=== PATIENT | female | born 1940 | race Caucasian/White ===

== ENCOUNTER → 2016-12-02 | Outpatient (CLI) | payer MEDICARE ==
[~2016-12-02] MED LIST: AMLO5CAP2 PO; ASPI32ECTA PO; ATEN50TA2 PO; COSO1SOL2 OU; FISH100049 PO; GEMF600T PO; GLIP5TAB8 PO; GLUC1CAP10 PO; GREE1TAB PO; GREE315C2 PO; LIPI80TA PO; METF1000 PO; MILK175C7 PO; VITA500C10 PO; ZYLO300T4 PO
[2016-12-02 11:30] LABS: ANION GAP 6 MEQ/L (8-16); BLOOD UREA NITROGEN 23 MG/DL (7-18); CALCIUM LEVEL 9.2 MG/DL (8.8-10.2); CARBON DIOXIDE LEVEL 26 MEQ/L (21-32); CHLORIDE LEVEL 106 MEQ/L (98-107); CREATININE FOR GFR 0.76 MG/DL (0.55-1.02); GLOMERULAR FILTRATION RATE > 60.0 (>39); GLUCOSE, FASTING 218 MG/DL (83-110); SODIUM LEVEL 138 MEQ/L (136-145)
--- NOTE | 2016-12-02 15:26 | ECGEPIP ---
Stationary ECG Study [facility] Test Date: 2016-12-02 Pat Name: KARLY ACOSTA Department: Room: - Gender: F Prestidigitator: REN : 1940 Requested By: Ridge Salinas Order Number: [id number] Reading MD: Ridge Mckeon Measurements Intervals [place] Rate: 61 P: 62 MO: 179 QRS: 31 QRSD: 96 T: 22 QT: 412 QTc: 415 Interpretive Statements SINUS RHYTHM Within normal limits. No prior ECG available for comparison at the time of interpretation. Electronically Signed On 12-02-2016 15:25:49 EDT by Ridge Mckeon
== END ==
LOC: M LAB 10:16
PROVIDERS: ATTEND Ophthalmology
DX: E11.9 Type 2 diabetes mellitus without complications (principal)

== ENCOUNTER 2016-12-09 11:03 | Day surgery (SDC) | payer MEDICARE ==
[~2016-12-09] VITALS: Ht 168.9 cm; Wt 88.5 kg
[~2016-12-09 11:03] MED LIST changes: +ACETYLCHOLINE OPHTH SOLN 1% 2ML As Ordered ONE; +BALANCED SALT IRRIGATION SOLUTION 500ML BAG (FOR OR EYE MACHINE) As Ordered ONE; +CEFUROXIME 1MG/0.1ML INTRACAMERAL INJ As Ordered ONE; +HEALON DUET (HEALON 10MG/ML 0.55ML & HEALON ENDOCOAT 30MG/ML 0.85ML) As Ordered ONE; +LIDOCAINE 0.75%/EPINEPHRINE 0.025% IN BSS 1ML SYR INTRACAMERAL (OR ONLY) As Ordered ONE; +OFLOXACIN 0.3 % (OCUFLOX) OPTH SOL 5ML OD ONE; +PHENYLEPHRINE 2.5% OPHTH SOL 2ML OD ONE; +POVIDONE-IODINE 5% OPHTH PREP SOL 30ML As Ordered ONE; +PROPARACAINE 0.5% OPHTH SOL 15ML OD ONE; +TOBRADEX OPHTH OINT 3.5 GM As Ordered ONE; +TROPICAMIDE 1% OPHTH SOLN 2 ML OD ONE
[2016-12-09] MEDS ORDERED: HumaLOG INSULIN (NovoLOG) PER UNIT As Ordered ONE (11:30)
[2016-12-09] MEDS ORDERED: HumaLOG INSULIN (NovoLOG) PER UNIT SC ONE ×2 (12:00→12:15)
[2016-12-09] MEDS ORDERED: D5W/0.2% SODIUM CHLORIDE 250 ML IV SCH ×2 (12:00→12:15)
[2016-12-09] MEDS ORDERED: fentaNYL 100 MCG/2 ML INJECTION (J3010) As Ordered ONE (12:06)
[2016-12-09] MEDS ORDERED: MIDAZOLAM INJ 2 MG/2 ML VIAL (J2250) As Ordered ONE (12:06)
[2016-12-09] MEDS ORDERED: TRIAMCINOLONE PRES FR 40 MG/ML 1ML(TRIESENCE)(OR EYE ONLY)(J3300 PER 1MG) As Ordered ONE (12:09)
[2016-12-09] MEDS ORDERED: OFLOXACIN 0.3 % (OCUFLOX) OPTH SOL 5ML As Ordered ONE (12:43)
[2016-12-09 13:20] VITALS: BP 183/86
--- NOTE | 2016-12-10 14:28 | RO ---
DATE OF PROCEDURE: 12/09/2016 PREOPERATIVE DIAGNOSIS: 1. Visually significant nuclear sclerotic cataract right eye. 2. Glaucoma. POSTOPERATIVE DIAGNOSIS: 1. Visually significant nuclear sclerotic cataract right eye. 2. Glaucoma. PROCEDURE: Extracapsular cataract removal with insertion of intraocular lens implant AU00T0, 21.0 diopter, with use of endoscopic cyclophotocoagulation, right eye. SURGEON: Augie Ngo DO GED INSTRUCTOR: ANESTHESIA: Local with monitored anesthesia care (MAC). COMPLICATIONS: None. POSTOPERATIVE CONDITION: Stable. INDICATION FOR SURGERY: Blurred vision right eye affecting patient's activities of daily living. DESCRIPTION OF PROCEDURE: The patient was seen in the preoperative area and properly identified. The correct operative eye was identified and marked. Attention was turned to that eye. The patient received topical antibiotics in the preoperative area. The patient then received topical dilating drops consisting of tropicamide and phenylephrine. The patient was then transferred to the operating room. The correct side was reidentified. The patient received topical anesthetics and antibiotics on the surface of the eye. The eye was prepped and draped in a sterile fashion. The upper and lower eyelids were isolated with Tegaderm tape, and the lids were held open with an adjustable speculum. Using a sideport blade, a paracentesis incision was made. Intraocular preservative-free lidocaine was then injected into the anterior chamber. Viscoelastic was then injected into the anterior chamber through the paracentesis. Using a 2.65 mm sharp-tipped keratome, the anterior chamber was entered via a temporal clear corneal incision. A continuous curvilinear capsulorrhexis was created with the aid of a 26-gauge cystotome and Utrata forceps. Hydrodissection was performed with balanced salt solution (BSS) on a blunt cannula until the nucleus was freely mobile. The crystalline lens was phacoemulsified and aspirated. A small anterior capsular tear was noted, the posterior capsule was inspected and was found to be intact. Additional cohesive viscoelastic was placed into the capsular bag to deepen it. A An AU00T0, 21.0 diopter lens was placed into the capsular bag and confirmed by visualizing the continuous curvilinear capsulorrhexis, the haptics were rotated away from the anterior capsular tear. Viscoelastic was then placed into the ciliary sulcus to deepen it. The ECP probe was placed into the anterior chamber and laser was performed. Viscoelastic was then removed. The lens was remained in good position. ReSure sealant was placed onto the temporal clear corneal incision. Miochol was used to reduce the pupil size. BSS was then used to refill the anterior chamber. All incisions were tested with Weck crawley and found to be watertight. The eyelid speculum was then carefully removed. Tobradex ointment was placed in the eye. An eye patch and shield were then secured over the eye. The patient tolerated the procedure well and was discharged to the recovery unit in a stable condition. KALPANA
== END 2016-12-09 13:15 | disposition home or self-care (01) ==
LOC: M SDC 11:03
PROVIDERS: ATTEND Ophthalmology
DX: H25.11 Age-related nuclear cataract, right eye (principal); H40.9 Unspecified glaucoma; I10 Essential (primary) hypertension; E11.9 Type 2 diabetes mellitus without complications; M06.9 Rheumatoid arthritis, unspecified; N20.0 Calculus of kidney; M16.11 Unilateral primary osteoarthritis, right hip; E78.5 Hyperlipidemia, unspecified; Z79.899 Other long term (current) drug therapy; Z79.82 Long term (current) use of aspirin; Z78.0 Asymptomatic menopausal state; Z98.51 Tubal ligation status
CPT/HCPCS: 66711; 66984; J2250; J3010; J3300; V2632

== ENCOUNTER → 2016-12-23 | Day surgery (SDC) | payer MEDICARE ==
[~2016-12-23] VITALS: Ht 168.9 cm; Wt 88.5 kg
[~2016-12-23] MED LIST changes: +D5W/0.2% SODIUM CHLORIDE 250 ML IV SCH; +HumaLOG INSULIN (NovoLOG) PER UNIT SC ONE; +LIDOCAINE 4% INJ 5 ML AMP As Ordered ONE; +MIDAZOLAM INJ 2 MG/2 ML VIAL (J2250) As Ordered ONE; -OFLOXACIN 0.3 % (OCUFLOX) OPTH SOL 5ML OD ONE; +OFLOXACIN 0.3 % (OCUFLOX) OPTH SOL 5ML OS ONE; -PHENYLEPHRINE 2.5% OPHTH SOL 2ML OD ONE; +PHENYLEPHRINE 2.5% OPHTH SOL 2ML OS ONE; -PROPARACAINE 0.5% OPHTH SOL 15ML OD ONE; +PROPARACAINE 0.5% OPHTH SOL 15ML OS ONE; -TROPICAMIDE 1% OPHTH SOLN 2 ML OD ONE; +TROPICAMIDE 1% OPHTH SOLN 2 ML OS ONE; +fentaNYL 100 MCG/2 ML INJECTION (J3010) As Ordered ONE
[2016-12-23 12:15] VITALS: BP 165/61
--- NOTE | 2016-12-24 10:07 | RO ---
DATE OF PROCEDURE: 12/23/2016 PREOPERATIVE DIAGNOSIS: Visually significant nuclear sclerotic cataract left eye. 2. Glaucoma POSTOPERATIVE DIAGNOSIS: Visually significant nuclear sclerotic cataract left eye. 2. Glaucoma PROCEDURE: Cataract extraction with use of phacoemulsification and placement of intraocular lens AU00T0, 20.0 Diopter, left eye, use of endoscopic cyclophotocoagulation. SURGEON: Augie Ngo DO RAMP ATTENDANT: ANESTHESIA: Local with monitored anesthesia care (MAC). COMPLICATIONS: None. POSTOPERATIVE CONDITION: Stable. INDICATION FOR SURGERY: Blurred vision left eye affecting patient's activities of daily living. DESCRIPTION OF PROCEDURE: The patient was seen in the preoperative area and properly identified. The correct operative eye was identified and marked. Attention was turned to that eye. The patient received topical antibiotics in the preoperative area. The patient then received topical dilating drops consisting of tropicamide and phenylephrine. The patient was then transferred to the operating room. The correct side was reidentified. The patient received topical anesthetics and antibiotics on the surface of the eye. The eye was prepped and draped in a sterile fashion. The upper and lower eyelids were isolated with Tegaderm tape, and the lids were held open with an adjustable speculum. Using a sideport blade, a paracentesis incision was made. Intraocular preservative-free lidocaine was then injected into the anterior chamber. Viscoelastic was then injected into the anterior chamber through the paracentesis. Using a 2.75 mm sharp-tipped keratome, the anterior chamber was entered via a temporal clear corneal incision. A continuous curvilinear capsulorrhexis was created with the aid of a 26-gauge cystotome and Utrata forceps. Hydrodissection was performed with balanced salt solution (BSS) on a blunt cannula until the nucleus was freely mobile. The crystalline lens was phacoemulsified and aspirated. Additional cohesive viscoelastic was placed into the capsular bag to deepen it. An AU00T0 21.0D lens was placed into the capsular bag and confirmed by visualizing the continuous curvilinear capsulorrhexis. Additional viscoelastic was placed in the ciliary sulcus to deepen it. The ECP probe was introduced to the corneal temporal incision and the ciliary processes were visualized. The ECP was used for approximately 270 degrees on a power of 0.25 for a total of 13 spots and then the ECP probe was removed from the eye. Additional irrigation and aspiration was used to remove cortical material and remaining viscoelastic. The clear corneal incision was hydrated with BSS on a blunt cannula. The lens was well positioned. The incisions were then tested for leaks and found to be negative. The eye was then palpated for appropriate pressure and adjusted accordingly with BSS. A single 10-0 nylon suture was placed and the knot was buried. The wound was checked and found to be water tight. The eyelid speculum was then carefully removed. Tobradex ointment was placed in the eye. An eye patch and shield were then secured over the eye. The patient tolerated the procedure well and was discharged to the recovery unit in a stable condition. KALPANA
== END | disposition home or self-care (01) ==
LOC: M SDC 09:09
PROVIDERS: ATTEND Ophthalmology
DX: H25.12 Age-related nuclear cataract, left eye (principal); H40.9 Unspecified glaucoma; I10 Essential (primary) hypertension; E11.9 Type 2 diabetes mellitus without complications; M06.9 Rheumatoid arthritis, unspecified; N20.0 Calculus of kidney; M16.11 Unilateral primary osteoarthritis, right hip; E78.5 Hyperlipidemia, unspecified; M10.9 Gout, unspecified; Z88.8 Allergy status to other drugs, medicaments and biological substances; Z79.899 Other long term (current) drug therapy; Z79.82 Long term (current) use of aspirin; Z98.51 Tubal ligation status
CPT/HCPCS: 66711; 66984; J2250; J3010; V2632

== ENCOUNTER → 2017-07-11 | Outpatient (CLI) | payer MEDICARE ==
[~2017-07-11] MED LIST changes: -ACETYLCHOLINE OPHTH SOLN 1% 2ML As Ordered ONE; +ASPI325T24 PO; -ASPI32ECTA PO; -BALANCED SALT IRRIGATION SOLUTION 500ML BAG (FOR OR EYE MACHINE) As Ordered ONE; -CEFUROXIME 1MG/0.1ML INTRACAMERAL INJ As Ordered ONE; -D5W/0.2% SODIUM CHLORIDE 250 ML IV SCH; -HEALON DUET (HEALON 10MG/ML 0.55ML & HEALON ENDOCOAT 30MG/ML 0.85ML) As Ordered ONE; -HumaLOG INSULIN (NovoLOG) PER UNIT SC ONE; -LIDOCAINE 0.75%/EPINEPHRINE 0.025% IN BSS 1ML SYR INTRACAMERAL (OR ONLY) As Ordered ONE; -LIDOCAINE 4% INJ 5 ML AMP As Ordered ONE; -METF1000 PO; +METF10004 PO; -MIDAZOLAM INJ 2 MG/2 ML VIAL (J2250) As Ordered ONE; +MILK175C2 PO; -MILK175C7 PO; -OFLOXACIN 0.3 % (OCUFLOX) OPTH SOL 5ML OS ONE; -PHENYLEPHRINE 2.5% OPHTH SOL 2ML OS ONE; -POVIDONE-IODINE 5% OPHTH PREP SOL 30ML As Ordered ONE; -PROPARACAINE 0.5% OPHTH SOL 15ML OS ONE; -TOBRADEX OPHTH OINT 3.5 GM As Ordered ONE; -TROPICAMIDE 1% OPHTH SOLN 2 ML OS ONE; -fentaNYL 100 MCG/2 ML INJECTION (J3010) As Ordered ONE
--- NOTE | 2017-07-11 14:11 | REPMRS ---
Patient History The patient states she has not had a clinical breast exam in over a year. Patient is postmenopausal. Family history of breast cancer in daughter at age 49. Digital Woman Screen Mammo: July 11, 2017 - Exam #: [id number] Bilateral CC and MLO view(s) were taken. Technologist: Alayna Mclean, Technologist Prior study comparison: November 14, 2015, digital woman screen mammo performed at [facility] to [facility]. October 29, 2014, digital woman screen mammo performed at [facility] to [facility]. FINDINGS: There are scattered fibroglandular densities. There has been no change in the appearance of the mammogram from the prior studies. There is a mild amount of residual fibroglandular tissue which is fairly symmetric. There is no interval development of dominant mass, architectural distortion, or clustered microcalcification suggestive of malignancy. ASSESSMENT: BI-RADS/ACR category 1 mammogram. Negative. Recommendation Routine screening mammogram in 1 year (for women over age 40). This mammogram was interpreted with the aid of an FDA-approved computer-aided dectection system. Electronically Signed By: Frank Chance MD 07/11/17 [id number]
== END ==
LOC: M WHC 13:24
PROVIDERS: ATTEND Nurse Practitioner Family
DX: Z12.31 Encounter for screening mammogram for malignant neoplasm of breast (principal)

== ENCOUNTER 2020-03-01 05:20 | Inpatient (IN) | payer MEDICARE ==
[2020-03-01] VITALS (11 sets, daily range): BP systolic 129–158; BP diastolic 61–80
[~2020-03-01] VITALS: Ht 167.6 cm; Wt 88.1 kg
[~2020-03-01 05:20] MED LIST changes: -AMLO5CAP2 PO; +AMLO5CAP44 PO; +ASPI-255 PO; -ASPI325T24 PO; -GEMF600T PO; +GEMF600T5 PO; -ZYLO300T4 PO; +ZYLO300T6 PO
[2020-03-01 05:48] LABS: BASO # 0.1 10^3/uL (0.0-0.2); BASO % 0.6 % (0.0-1.0); EOS # 0.2 10^3/uL (0.0-0.5); EOS % 1.9 % (0.0-3.0); HEMATOCRIT 33.7 % (36.0-47.0); HEMOGLOBIN 10.7 g/dl (12.0-15.5); LYMPH # 2.6 10^3/uL (1.5-5.0); LYMPH % 29.1 % (24.0-44.0); MEAN CORPUSCULAR HEMOGLOBIN 29.7 pg (27.0-33.0); MEAN CORPUSCULAR HGB CONC 31.8 g/dl (32.0-36.5); MEAN CORPUSCULAR VOLUME 93.6 fl (80.0-96.0); MONO # 0.5 10^3/uL (0.0-0.8); NEUTROPHILS # 5.5 10^3/uL (1.5-8.5); NEUTROPHILS % 61.7 % (36.0-66.0); PLATELET COUNT, AUTOMATED 342 10^3/uL (150-450); WHITE BLOOD COUNT 8.9 10^3/uL (4.0-10.0)
[2020-03-01 06:05] LABS: INR 0.88; PROTHROMBIN TIME 11.6 SECONDS (11.8-14.0)
[2020-03-01 06:06] LABS: PARTIAL THROMBOPLASTIN TIME 24.4 SECONDS (25.0-38.4)
[2020-03-01 06:13] LABS: BLOOD UREA NITROGEN 26 MG/DL (7-18); CALCIUM LEVEL 8.3 MG/DL (8.8-10.2); CARBON DIOXIDE LEVEL 23 MEQ/L (21-32); CHLORIDE LEVEL 110 MEQ/L (98-107); CREATININE FOR GFR 0.92 MG/DL (0.55-1.30); GLOMERULAR FILTRATION RATE > 60.0 (>39); GLUCOSE, FASTING 272 MG/DL (70-100); POTASSIUM SERUM 4.2 MEQ/L (3.5-5.1); SODIUM LEVEL 143 MEQ/L (136-145)
[2020-03-01] MEDS ORDERED: AMLODIPINE/BENAZ PO (06:43)
[2020-03-01] MEDS ORDERED: GLIP10TA18 PO (06:43)
[2020-03-01] MEDS ORDERED: MILK175T PO (06:43)
[2020-03-01] MEDS ORDERED: PURE500C5 PO (06:43)
[2020-03-01] MEDS ORDERED: CINN500C2 PO (06:44)
[2020-03-01] MEDS ORDERED: XELP0.00 OS (06:44)
[2020-03-01] MEDS ORDERED: NS 1,000 ML IV ONE (06:45)
[2020-03-01] MEDS ORDERED: BIOT10TA2 PO (06:46)
[2020-03-01] MEDS ORDERED: VITAD1000T PO (06:46)
--- NOTE | 2020-03-01 07:28 | ECGEPIP ---
[facility] - ED Test Date: 2020-03-01 Pat Name: KARLY ACOSTA Department: Room: - Gender: Female Supervisor Chassis Assembly: SONALI : 1940 Requested By: NADIRA RAMIREZ Order Number: [id number] Reading MD: Alma Dyer Measurements Intervals [place] Rate: 57 P: 6 [place]: 174 QRS: 13 QRSD: 89 T: 15 QT: 439 QTc: 428 Interpretive Statements SINUS BRADYCARDIA similar to prior EKG 12/02/16 Electronically Signed on 03-01-2020 7:28:36 EDT by Alma Dyer
[2020-03-01] MEDS ORDERED: GLUCAGON INJ 1MG VIAL SC PRN (08:30)
[2020-03-01] MEDS ORDERED: ACETAMINOPHEN TAB 650MG DOSE (2X325MG) PO PRN (08:30)
[2020-03-01] MEDS ORDERED: DEXTROSE 50% 50 ML SYRINGE IV PRN (08:30)
[2020-03-01] MEDS ORDERED: GLUCOSE 4GM CHEW TABLET PO PRN (08:30)
[2020-03-01] MEDS ORDERED: COSOPT OCUMETER PLUS 10ML (DORZOLAMIDE/TIMOLOL) OU SCH (09:00)
--- NOTE | 2020-03-01 11:33 | HPEPDOC ---
General Date of Admission Mar 01, 2020 at 08:22 Date of Service: Mar 01, 2020 Chief Complaint The patient is a 79-year-old female who presented to the hospital with complaints of bright red bleeding per rectum History of Present Illness Patient is a 39-year-old female with a PMHx of HTN, NIDDM2, DLP and RA who presented to the hospital with complaints of bright red bleeding per rectum. Patient reported that at 4:00 this morning she had woken up with the sensation of diarrhea. Patient had a bowel movement that she described as containing mostly blood, followed 10 minutes after with another moderate sized bloody bowel movement. Patient reports that the day prior. She has had normal bowel movements.. She denies any abdominal pain, nausea or vomiting. Has not taken any NSAIDs over the last 4 months. Patient did report lightheadedness and dizziness. Upon arrival, however, this h as resolved. Patient denies any chest pain, shortness of breath, palpitations. Denies any history of strokes or CT. Denies any urinary discomfort or any recent fevers or chills. Reports a normal appetite and no changes in her weight. Home Medications Scheduled Allopurinol (Zyloprim) 300 Mg Tab, 300 MG PO Q2D, (Reported) EVENING Ascorbic Acid (Vitamin C) 500 Mg Capsule.er, 500 MG PO DAILY, (Reported) Aspirin (Aspirin EC) 325 Mg Tabec, 325 MG PO DAILY, (Reported) Atenolol (Atenolol) 50 Mg Tab, 50 MG PO DAILY, (Reported) Atorvastatin Calcium (Lipitor) 80 Mg Tab, 80 MG PO 2XWK, (Reported) TUESDAY AND TUESDAY Biotin (Biotin) 10 Mg Tablet, 10 MG PO DAILY, (Reported) Cholecalciferol (Vitamin D3) (Vitamin D3) 1,000 Unit Tablet, 1,000 UNITS PO DAILY, (Reported) Cinnamon Bark (Cinnamon) 500 Mg Capsule, 500 MG PO DAILY, (Reported) Dorzolamide/Timolol/Pf (Cosopt Pf Eye Drops) 1 Tamy Tamy, 1 DROP OU BID, (Reported) Gemfibrozil (Gemfibrozil) 600 Mg Tab, 600 MG PO BID, (Reported) Glipizide (Glipizide ER) 10 Mg Tab.er.24, 20 MG PO QPM, (Reported) Gluc Bateman/Chondro Bateman A/Vit C/Mn (Glucosamine-Chondroitin Cap) 1 Cap Cap, 1 CAP PO DAILY, (Reported) Latanoprost (Xelpros) 0.005% 2.5ML Drps.emuls, 1 DROP OS QHS, (Reported) Metformin HCl (Metformin HCl) 1,000 Mg Tab, 1,500 MG PO BID, (Reported) Milk Thistle (Milk Thistle) 175 Mg Tablet, 175 MG PO DAILY, (Reported) [Amlodipine/Benaz] , 5-20 MG PO QHS, (Reported) Allergies Coded Allergies: bimatoprost (Verified Allergy, Unknown, 03/01/20) brimonidine (Verified Allergy, Unknown, 03/01/20) timolol (Verified Allergy, Unknown, 03/01/20) Past Medical History Medical History HTN, NIDDM2, DLP and RA Surgical History Patient reports bilateral cataract surgery Family History - Mother with history of smoking and emphysema - Father with no reported medical problems Social History - Denies the use of alcohol, tobacco or illicit drugs - Denies recent travel or sick contacts - Lives with - 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; 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 Review of Systems Other systems 10 point review of systems complete, all negative otherwise stated in HPI Vital Signs - Vitals: BP 129/72, HR 60, RR 16, Sat 98%RA, Temp 98.3F - General: Lying in bed, Speaking in full sentences, AAOx3 - HEENT: NC, AT, PERRLA - CVS: RRR, +S1S2 - Lungs: Fair air entry bilaterally, No appreciable wheezing / rales / rhonchi - Abdomen: Soft, Non-distended, Non-tender - Extremities: No lower extremity edema, No calf tenderness - Neuro: No focal motor or sensory deficit - Skin: No visible rashes Laboratory Data Labs 24H Laboratory Tests 2 03/01/20 05:36: Immature Granulocyte % (Auto) 0.7, Neutrophils (%) (Auto) 61.7, Lymphocytes (%) (Auto) 29.1, Monocytes (%) (Auto) 6.0H, Eosinophils (%) (Auto) 1.9, Basophils (%) (Auto) 0.6, Neutrophils # (Auto) 5.5, Lymphocytes # (Auto) 2.6, Monocytes # (Auto) 0.5, Eosinophils # (Auto) 0.2, Basophils # (Auto) 0.1, Nucleated Red Blood Cells % (auto) 0.0, Prothrombin Time 11.6L, Prothromb Time International Ratio 0.88, Activated Partial Thromboplast Time 24.4L, Anion Gap 10, Glomerular Filtration Rate > 60.0, Calcium Level 8.3L CBC/BMP Laboratory Tests 03/01/20 05:36 Plan / VTE VTE Prophylaxis Ordered?: Yes Plan Plan Acute blood loss anemia - likely 2/2 lower GI bleed - Patient presented to the emergency room after she had reported bright red bleeding per rectum - Patient is hemodynamically stable currently, however was hypotensive on arrival - Patient is on beta sindhu therapy - There is no hemoglobin baseline recently available; currently Hg of 10.7 - Will transfuse patient 2 units of PRBC - Will continue to follow H&H every 6 hours - Will continue with a clear liquid diet - Will hold ASA 325 (re: takes it at home for stroke prevention) - Case discussed with general surgery, Dr. Jacobsen; will continue to follow hemoglobin and transfuse as needed; if hemoglobin fails to stabilize will officially consult general surgery for possible endoscopy HTN - Blood pressure appears to be within normal range. Currently - Will continue with Atenolol with holding parameters - Will hold Benazapril / HCTZ NIDDM2 - Will start ISS DLP - c/w Atorvastatin RA - Patient notes that she was told by her primary care provider that she may have early signs of rheumatoid arthritis - Was advised to take Aleve and Tylenol as needed; she is reported that she has not required any of these for last 4 months Glaucoma - c/w outpatient eye drops Gout - c/w Allopurinol Gastrointestinal prophylaxis - Will start Protonix IV DVT prophylaxis - Will start TEDlula/ELAYNE Piper MD Mar 01, 2020 11:33
[2020-03-01] MEDS: VITAMIN D 1,000 INTERNATIONAL UNITS TABLET PO SCH (12:52)
[2020-03-01] MEDS: atenoloL 50 MG TAB PO SCH (12:53)
[2020-03-01] MEDS: PANTOPRAZOLE 40MG VIAL (C9113 PER 1) IV SCH (12:53)
[2020-03-01] MEDS: HumaLOG INSULIN (NovoLOG) PER UNIT SC SCH ×3 (13:41→21:00)
[2020-03-01 16:58] LABS: HEMATOCRIT 33.6 % (36.0-47.0); HEMOGLOBIN 11.2 g/dl (12.0-15.5)
[2020-03-01] MEDS: LATANOPROST 0.005% OPHTH SOLN 2.5 ML OU SCH (21:00)
[2020-03-02] VITALS: BP 158/70
[2020-03-02 00:28] LABS: HEMATOCRIT 34.9 % (36.0-47.0); HEMOGLOBIN 11.4 g/dl (12.0-15.5)
[2020-03-02 04:00] VITALS: BP 160/80
[2020-03-02 04:53] LABS: BASO % 0.4 % (0.0-1.0); EOS # 0.1 10^3/uL (0.0-0.5); EOS % 1.3 % (0.0-3.0); HEMATOCRIT 34.9 % (36.0-47.0); HEMOGLOBIN 11.4 g/dl (12.0-15.5); LYMPH # 2.4 10^3/uL (1.5-5.0); LYMPH % 31.7 % (24.0-44.0); MEAN CORPUSCULAR HEMOGLOBIN 30.2 pg (27.0-33.0); MEAN CORPUSCULAR HGB CONC 32.7 g/dl (32.0-36.5); MEAN CORPUSCULAR VOLUME 92.6 fl (80.0-96.0); MONO # 0.5 10^3/uL (0.0-0.8); MONO % 6.5 % (0.0-5.0); NEUTROPHILS # 4.5 10^3/uL (1.5-8.5); NEUTROPHILS % 59.6 % (36.0-66.0); PLATELET COUNT, AUTOMATED 255 10^3/uL (150-450); RED BLOOD COUNT 3.77 10^6/uL (4.00-5.40); WHITE BLOOD COUNT 7.5 10^3/uL (4.0-10.0)
[2020-03-02 05:11] LABS: BLOOD UREA NITROGEN 17 MG/DL (7-18); CALCIUM LEVEL 8.4 MG/DL (8.8-10.2); CARBON DIOXIDE LEVEL 25 MEQ/L (21-32); CHLORIDE LEVEL 111 MEQ/L (98-107); CREATININE FOR GFR 0.69 MG/DL (0.55-1.30); GLOMERULAR FILTRATION RATE > 60.0 (>39); GLUCOSE, FASTING 154 MG/DL (70-100); MAGNESIUM LEVEL 1.9 MG/DL (1.8-2.4); POTASSIUM SERUM 4.5 MEQ/L (3.5-5.1); SODIUM LEVEL 141 MEQ/L (136-145)
[2020-03-02 08:00] VITALS: BP 160/80
[2020-03-02] MEDS: HumaLOG INSULIN (NovoLOG) PER UNIT SC SCH ×4 (09:14→21:00)
[2020-03-02] MEDS: VITAMIN D 1,000 INTERNATIONAL UNITS TABLET PO SCH (09:14)
[2020-03-02] MEDS: PANTOPRAZOLE 40MG VIAL (C9113 PER 1) IV SCH (09:14)
[2020-03-02] MEDS: atenoloL 50 MG TAB PO SCH (09:15)
--- NOTE | 2020-03-02 10:05 | IPNPDOC ---
Text Note Date of Service The patient was seen on 03/02/20. NOTE Subjective: Patient is a 39-year-old female with a PMHx of HTN, NIDDM2, DLP and RA who presented to the hospital with complaints of bright red bleeding per rectum. Patient reported that at 4:00 this morning she had woken up with the sensation of diarrhea. Patient had a bowel movement that she described as containing mostly blood, followed 10 minutes after with another moderate sized bloody bowel movement. Patient was admitted to the hospitalist service for suspected lower GI bleeding. Objective: Vitals (See below) General: Lying in bed, comfortable, AAOx3 HEENT: NC, AT CVS: +S1S2 Lungs: Fair air entry b/l, -w/r/r Abdomen: Soft, ND, NT Extremities: - Edema, - Calf tenderness Assessment and plan: Acute blood loss anemia - likely 2/2 lower GI bleed - Patient reported that on 7/4 AM she experienced several bloody bowel movements - Patient reported that this morning she had a small bowel movement with some small amounts of blood, but mostly stool - Hemodynamically stable - Patient is on beta sindhu therapy - s/p 2 units PRBC; Will continue to trend H&H q6h - Will advance diet - Discontinue ASA - If Hg remains stable will discharge tomorrow with outpatient follow with gastroenterology / surgery for colonoscopy HTN - Blood pressure elevated this morning - c/w Atenolol with holding parameters - Will resume Amlodipine / Benazepril NIDDM2 - c/w ISS DLP - c/w Atorvastatin RA - Patient notes that she was told by her primary care provider that she may have early signs of rheumatoid arthritis - Was advised to take Aleve and Tylenol as needed; she is reported that she has not required any of these for last 4 months Glaucoma - c/w outpatient eye drops Gout - c/w Allopurinol Gastrointestinal prophylaxis - c/wt Protonix IV DVT prophylaxis - c/w TEDs/Sequentials VS,Fishbone, I+O VS, Fishbone, I+O Laboratory Tests 03/01/20 16:33 03/01/20 23:43 03/02/20 04:35 Vital Signs Date Time Temp Pulse Resp B/P (MAP) Pulse Ox O2 Delivery O2 Flow Rate FiO2 03/02/20 09:15 58 160/80 03/02/20 08:00 96.9 18 98 Room Air I&O- Last 24 Hours up to 6 AM 03/02/20 06:00 Intake Total 1950 ml Output Total 2100 ml Balance -150 ml ELAYNE GOODE MD Mar 02, 2020 10:05
[2020-03-02] MEDS ORDERED: LOTR52CA PO (10:11)
[2020-03-02] MEDS: amLODIPine 5 MG TAB PO SCH (10:53)
[2020-03-02] MEDS: BENAZEPRIL 20 MG TAB PO SCH (10:53)
[2020-03-02 12:00] VITALS: BP 164/70
[2020-03-02 12:05] LABS: HEMATOCRIT 36.1 % (36.0-47.0); HEMOGLOBIN 11.9 g/dl (12.0-15.5)
[2020-03-02] MEDS ORDERED: SLF 3 ML SYR IV PRN (14:15)
[2020-03-02 18:24] LABS: HEMATOCRIT 37.1 % (36.0-47.0); HEMOGLOBIN 12.3 g/dl (12.0-15.5)
[2020-03-02 20:00] VITALS: BP 160/64
[2020-03-02] MEDS ORDERED: allopurinoL 300 MG TAB PO SCH (21:00)
[2020-03-02] MEDS ORDERED: ATORVASTATIN 20 MG TAB PO SCH (21:00)
[2020-03-02] MEDS: LATANOPROST 0.005% OPHTH SOLN 2.5 ML OU SCH (21:00)
[2020-03-02] MEDS: SLF 3 ML SYR IV SCH (21:36)
[2020-03-02 23:48] LABS: HEMATOCRIT 35.9 % (36.0-47.0); HEMOGLOBIN 11.8 g/dl (12.0-15.5)
[2020-03-03] VITALS: BP 158/68
[2020-03-03 06:10] LABS: BASO % 0.5 % (0.0-1.0); EOS # 0.1 10^3/uL (0.0-0.5); EOS % 1.9 % (0.0-3.0); HEMATOCRIT 34.3 % (36.0-47.0); HEMOGLOBIN 11.3 g/dl (12.0-15.5); LYMPH # 2.1 10^3/uL (1.5-5.0); LYMPH % 28.1 % (24.0-44.0); MEAN CORPUSCULAR HEMOGLOBIN 30.1 pg (27.0-33.0); MEAN CORPUSCULAR HGB CONC 32.9 g/dl (32.0-36.5); MEAN CORPUSCULAR VOLUME 91.5 fl (80.0-96.0); MONO # 0.5 10^3/uL (0.0-0.8); NEUTROPHILS # 4.6 10^3/uL (1.5-8.5); PLATELET COUNT, AUTOMATED 262 10^3/uL (150-450); RED BLOOD COUNT 3.75 10^6/uL (4.00-5.40); WHITE BLOOD COUNT 7.5 10^3/uL (4.0-10.0)
[2020-03-03 06:30] LABS: BLOOD UREA NITROGEN 16 MG/DL (7-18); CALCIUM LEVEL 8.5 MG/DL (8.8-10.2); CARBON DIOXIDE LEVEL 28 MEQ/L (21-32); CHLORIDE LEVEL 110 MEQ/L (98-107); CREATININE FOR GFR 0.69 MG/DL (0.55-1.30); GLOMERULAR FILTRATION RATE > 60.0 (>39); GLUCOSE, FASTING 205 MG/DL (70-100); POTASSIUM SERUM 4.9 MEQ/L (3.5-5.1); SODIUM LEVEL 143 MEQ/L (136-145)
[2020-03-03] MEDS: SLF 3 ML SYR IV SCH (07:23)
[2020-03-03 08:00] VITALS: BP 155/68
[2020-03-03] MEDS: VITAMIN D 1,000 INTERNATIONAL UNITS TABLET PO SCH (08:05)
[2020-03-03 08:06] VITALS: BP 155/68
[2020-03-03] MEDS: BENAZEPRIL 20 MG TAB PO SCH (08:06)
[2020-03-03] MEDS: PANTOPRAZOLE 40MG VIAL (C9113 PER 1) IV SCH (08:06)
[2020-03-03] MEDS: amLODIPine 5 MG TAB PO SCH (08:06)
[2020-03-03] MEDS: atenoloL 50 MG TAB PO SCH (08:07)
[2020-03-03] MEDS: HumaLOG INSULIN (NovoLOG) PER UNIT SC SCH (08:07)
[2020-03-03] MEDS ORDERED: TIMOLOL OU SCH (09:00)
[2020-03-03] MEDS ORDERED: DORZOLAMIDE OU SCH (09:00)
--- NOTE | 2020-03-03 10:53 | DS.PDOC ---
Discharge Summary General Date of Admission Mar 01, 2020 at 08:22 Date of Discharge 03/03/2020 Discharge Summary PROCEDURES PERFORMED DURING STAY: [None]. ADMITTING DIAGNOSES / DISCHARGE DIAGNOSES: Acute blood loss anemia - likely 2/2 lower GI bleed HTN NIDDM2 DLP RA Glaucoma Gout Gastrointestinal prophylaxis DVT prophylaxis COMPLICATIONS/CHIEF COMPLAINT: Weakness / Bleeding per rectum HISTORY OF PRESENT ILLNESS: Patient is a 39-year-old female with a PMHx of HTN, NIDDM2, DLP and RA who presented to the hospital with complaints of bright red bleeding per rectum. Patient reported that at 4:00 this morning she had woken up with the sensation of diarrhea. Patient had a bowel movement that she described as containing mostly blood, followed 10 minutes after with another moderate sized bloody bowel movement. Patient was admitted to the hospitalist service for suspected lower GI bleeding. HOSPITAL COURSE: Acute blood loss anemia - likely 2/2 lower GI bleed - Patient reported that on 7/4 AM she experienced several bloody bowel movements - Patient reported that this morning she had a small bowel movement with some small amounts of blood, but mostly stool - Hemodynamically stable - Patient is on beta sindhu therapy - s/p 2 units PRBC; Hg as remained stable - Diet fully advanced - s/p ASA - Will have outpatient follow-up with surgery/gastroenterology for colonoscopy HTN - Blood slightly improved; will continue oral medications - c/w Amlodipine / Benazepril / Atenolol with holding parameters NIDDM2 - c/w ISS DLP - c/w Atorvastatin RA - Patient notes that she was told by her primary care provider that she may have early signs of RA - Was advised to take Aleve and Tylenol as needed; she is reported that she has not required any of these for last 4 months Glaucoma - c/w outpatient eye drops Gout - c/w Allopurinol Gastrointestinal prophylaxis - c/w Protonix IV DVT prophylaxis - c/w TEDs/Sequentials DISCHARGE MEDICATIONS: Please see below. ALLERGIES: Please see below. PHYSICAL EXAMINATION ON DISCHARGE: Vitals (See below) General: Lying in bed, remains comfortable, AAOx3 HEENT: NC, AT CVS: +S1S2 Lungs: Fair air entry b/l, no evidence of wheezing, rhonchi or crackles Abdomen: Soft, nondistended and nontender Extremities: - Edema, - Calf tenderness LABORATORY DATA: Please see below. ACTIVITY: [As tolerated]. DISCHARGE PLAN: Follow-up with primary care provider and surgery within 7 days Remain compliant with treatment plan and medications Return to the ER if you experience any problems DISPOSITION: Home DISCHARGE CONDITION: [Stable]. TIME SPENT ON DISCHARGE: 35 minutes Vital Signs/I&Os Vital Signs Date Time Temp Pulse Resp B/P (MAP) Pulse Ox O2 Delivery O2 Flow Rate FiO2 03/03/20 08:07 58 03/03/20 08:06 155/68 03/03/20 08:00 98.6 18 97 Room Air I&O- Last 24 Hours up to 6 AM 03/03/20 06:00 Intake Total 610 ml Output Total 1100 ml Balance -490 ml Laboratory Data Labs 24H Laboratory Tests 2 03/02/20 11:58: Bedside Glucose (Misc Panel) 203H 03/02/20 16:50: Bedside Glucose (Misc Panel) 148H 03/02/20 21:39: Bedside Glucose (Misc Panel) 179H 03/03/20 05:54: Immature Granulocyte % (Auto) 0.5, Neutrophils (%) (Auto) 62.0, Lymphocytes (%) (Auto) 28.1, Monocytes (%) (Auto) 7.0H, Eosinophils (%) (Auto) 1.9, Basophils (%) (Auto) 0.5, Neutrophils # (Auto) 4.6, Lymphocytes # (Auto) 2.1, Monocytes # (Auto) 0.5, Eosinophils # (Auto) 0.1, Basophils # (Auto) 0.0, Nucleated Red Blood Cells % (auto) 0.0, Anion Gap 5L, Glomerular Filtration Rate > 60.0, Calcium Level 8.5L, Magnesium Level 2.0 CBC/BMP Laboratory Tests 03/02/20 11:55 03/02/20 18:06 03/02/20 23:39 03/03/20 05:54 FSBS Laboratory Tests Test 03/02/20 11:58 03/02/20 16:50 03/02/20 21:39 Range/Units Bedside Glucose (Misc Panel) 203 148 179 83-110 MG/DL Discharge Medications Scheduled Allopurinol (Zyloprim) 300 Mg Tab, 300 MG PO Q2D, (Reported) EVENING Amlodipine/Benazepril (Lotrel 5-20 mg Capsule) 1 Each Capsule, 1 CAP PO QAM, (Reported) Ascorbic Acid (Vitamin C) 500 Mg Capsule.er, 500 MG PO DAILY, (Reported) Atenolol (Atenolol) 50 Mg Tab, 50 MG PO DAILY, (Reported) Atorvastatin Calcium (Lipitor) 80 Mg Tab, 80 MG PO 2XWK, (Reported) TUESDAY AND TUESDAY Biotin (Biotin) 10 Mg Tablet, 10 MG PO DAILY, (Reported) Cholecalciferol (Vitamin D3) (Vitamin D3) 1,000 Unit Tablet, 1,000 UNITS PO DAILY, (Reported) Cinnamon Bark (Cinnamon) 500 Mg Capsule, 500 MG PO DAILY, (Reported) Dorzolamide/Timolol/Pf (Cosopt Pf Eye Drops) 1 Tamy Tmay, 1 DROP OU BID, (Reported) Gemfibrozil (Gemfibrozil) 600 Mg Tab, 600 MG PO BID, (Reported) Glipizide (Glipizide ER) 10 Mg Tab.er.24, 20 MG PO QPM, (Reported) Gluc Bateman/Chondro Bateman A/Vit C/Mn (Glucosamine-Chondroitin Cap) 1 Cap Cap, 1 CAP PO DAILY, (Reported) Latanoprost (Xelpros) 0.005% 2.5ML Drps.emuls, 1 DROP OS QHS, (Reported) Metformin HCl (Metformin HCl) 1,000 Mg Tab, 1,500 MG PO BID, (Reported) Milk Thistle (Milk Thistle) 175 Mg Tablet, 175 MG PO DAILY, (Reported) Allergies Coded Allergies: bimatoprost (Verified Allergy, Unknown, 03/01/20) brimonidine (Verified Allergy, Unknown, 03/01/20) timolol (Verified Allergy, Unknown, 03/01/20) ELAYNE GOODE MD Mar 03, 2020 10:53
[2020-03-03] MEDS ORDERED: ENTER DRUG NAME HERE (PATIENT'S OWN MED) OU SCH (21:00)
[2020-03-03] MEDS ORDERED: LATANOPROST 0.005% OS SCH (21:00)
== END 2020-03-03 11:04 | disposition home or self-care (01) | DRG 378 ==
LOC: M ED 05:20 → M ED INP 08:22 → ENRESERV 09:04 → M PCU 10:03
PROVIDERS: ADMIT Internal Medicine; ATTEND Internal Medicine
PROC: 30233N1 Transfusion of Nonautologous Red Blood Cells into Peripheral Vein, Percutaneous Approach (ICD-10-PCS; principal; 2020-03-01)
DX: K62.5 Hemorrhage of anus and rectum (principal); D62 Acute posthemorrhagic anemia; I10 Essential (primary) hypertension; E11.9 Type 2 diabetes mellitus without complications; E78.5 Hyperlipidemia, unspecified; H40.9 Unspecified glaucoma; M06.9 Rheumatoid arthritis, unspecified; M10.9 Gout, unspecified; R53.1 Weakness; Z79.82 Long term (current) use of aspirin; Z79.899 Other long term (current) drug therapy; Z79.84 Long term (current) use of oral hypoglycemic drugs; Z88.8 Allergy status to other drugs, medicaments and biological substances

== ENCOUNTER → 2023-12-09 | Outpatient (CLI) | payer MEDICARE ==
[~2023-12-09] MED LIST changes: +AMLODIPINE/BENAZ PO; +ASCO500C3 PO; +BIOT10TA2 PO; +CINN500C2 PO; -COSO1SOL2 OU; +DORZ1DRO6 OU; +GLIP10TA18 PO; +GLIP5TAB17 PO; -GLIP5TAB8 PO; +LOTR52CA PO; +MILK175T PO; +VITA100093 PO; +XELP0.00 OS
== END ==
LOC: M WUC 11:33
PROVIDERS: ATTEND Nurse Practitioner Family
DX: M16.12 Unilateral primary osteoarthritis, left hip (principal)